=== PATIENT | male | born 1980 | race Caucasian/White ===

== ENCOUNTER 2017-04-24 20:52 | Emergency (ER) | payer SELFPAY ==
[~2017-04-24] VITALS: Ht 175.3 cm; Wt 90.0 kg
[2017-04-24 22:57] LABS: HEMATOCRIT 36.6 % (39.0-50.0); HEMOGLOBIN 11.9 g/dl (14.0-18.0); IMMATURE GRANULOCYTES 0.4 % (0.0-1.0); MEAN CELL VOLUME 97.6 fL CALC (80.0-100.0); MEAN CORPUSCULAR HGB 31.7 pG CALC (26.0-32.0); MEAN CORPUSCULAR HGB CONC 32.5 g/L CALC (32.0-36.0); NEUT# 6.01 thou/uL (1.82-7.42); RED BLOOD COUNT 3.75 mill/uL (4.70-6.10); RED CELL DISTRI WIDTH 13.7 % (11.5-15.5)
[2017-04-24 23:18] LABS: ALBUMIN 3.9 g/dL (3.2-5.0); ALKALINE PHOSPHATASE 111 u/l (38-126); ANION GAP 11 (6-22 (CALC)); BILIRUBIN, TOTAL 0.4 mg/dL (0.0-1.4); BUN 18 mg/dL (9-20); BUN/CREATININE RATIO 29 (12-20 (CALC)); CALCIUM 9.1 mg/dL (8.4-10.2); CARBON DIOXIDE 31 mmol/l (22-30); CHLORIDE 103 mmol/l (95-108); CREATININE 0.6 mg/dL (0.7-1.3); GFR > 60 ML/MIN (>=60 (CALC)); GFR FOR AFR.AMER. > 60 ML/MIN (>=60 (CALC)); GLUCOSE 84 mg/dL (75-110); POTASSIUM 4.2 mmol/l (3.5-5.1); SGOT/AST 20 u/l (17-59); SGPT/ALT 32 u/l (21-72); SODIUM 142 mmol/l (137-146); TOTAL PROTEIN 6.6 g/dL (6.3-8.2)
[2017-04-24 23:30] LABS: MYOGLOBIN 32 ng/mL (0 - 121)
[2017-04-24 23:41] LABS: URINE BILIRUBIN - DIPSTICK NEGATIVE (NEGATIVE); URINE BLOOD DIPSTICK NEGATIVE (NEGATIVE); URINE CLARITY CLEAR; URINE COLOR YELLOW; URINE GLUCOSE - DIPSTICK NEGATIVE (NEGATIVE); URINE KETONE NEGATIVE (NEGATIVE); URINE LEUK ESTERASE NEGATIVE (NEGATIVE); URINE NITRITE - DIPSTICK NEGATIVE (Negative); URINE PH 6.5 (4.5-8.0); URINE PROTEIN - DIPSTICK NEGATIVE (NEG-TRACE); URINE UROBILINOGEN - DIPSTICK 0.2 E.U./dL (0.2)
[2017-04-25] MEDS ORDERED: DOXYCYC MONO100 M2 PO (00:11)
[2017-04-25 01:35] VITALS: BP 102/63
== END 2017-04-25 01:35 | disposition home or self-care (01) | DRG 603 ==
LOC: ED 20:52
PROVIDERS: Emergency Medicine
DX: L03.116 Cellulitis of left lower limb (principal); F17.210 Nicotine dependence, cigarettes, uncomplicated; L03.115 Cellulitis of right lower limb; R22.43 Localized swelling, mass and lump, lower limb, bilateral
CPT/HCPCS: J1956

== ENCOUNTER 2017-07-20 21:29 | Emergency (ER) | payer SELFPAY ==
[~2017-07-20] VITALS: Ht 175.3 cm; Wt 104.8 kg
[~2017-07-20 21:29] MED LIST: DOXYCYC MONO100 M2 PO
[2017-07-20 23:52] VITALS: BP 120/75
== END 2017-07-20 23:45 | disposition home or self-care (01) | DRG 395 ==
LOC: ED 21:29
DX: K40.90 Unilateral inguinal hernia, without obstruction or gangrene, not specified as recurrent (principal); R10.31 Right lower quadrant pain

== ENCOUNTER 2018-03-22 00:13 | Emergency (ER) | payer SELFPAY ==
[~2018-03-22] VITALS: Ht 180.3 cm; Wt 109.0 kg
[2018-03-22 00:51] LABS: HEMATOCRIT 39.7 % (39.0-50.0); HEMOGLOBIN 13.2 g/dl (14.0-18.0); IMMATURE GRANULOCYTES 0.3 % (0.0-5.0); MEAN CELL VOLUME 94.5 fL CALC (80.0-100.0); MEAN CORPUSCULAR HGB 31.4 pG CALC (26.0-32.0); MEAN CORPUSCULAR HGB CONC 33.2 g/L CALC (32.0-36.0); NEUT# 11.05 thou/uL (1.82-7.42); RED BLOOD COUNT 4.2 mill/uL (4.70-6.10); RED CELL DISTRI WIDTH 14.9 % (11.5-15.5)
[2018-03-22 01:00] LABS: ALBUMIN 3.9 g/dL (3.2-5.0); ALKALINE PHOSPHATASE 120 u/l (38-126); ANION GAP 13 (6-22 (CALC)); BILIRUBIN, TOTAL 0.2 mg/dL (0.0-1.4); BUN 30 mg/dL (9-20); BUN/CREATININE RATIO 32 (12-20 (CALC)); CARBON DIOXIDE 28 mmol/l (22-30); CHLORIDE 105 mmol/l (95-108); CREATININE 0.9 mg/dL (0.7-1.3); GFR > 60 ML/MIN (>=60 (CALC)); GFR FOR AFR.AMER. > 60 ML/MIN (>=60 (CALC)); SGOT/AST 29 u/l (17-59); SGPT/ALT 33 u/l (21-72); SODIUM 141 mmol/l (137-146); TOTAL PROTEIN 6.9 g/dL (6.3-8.2)
[2018-03-22 01:11] LABS: MYOGLOBIN 28 ng/mL (0 - 121)
[2018-03-22 04:33] LABS: URINE BILIRUBIN - DIPSTICK NEGATIVE (NEGATIVE); URINE BLOOD DIPSTICK NEGATIVE (NEGATIVE); URINE COLOR YELLOW; URINE GLUCOSE - DIPSTICK NEGATIVE (NEGATIVE); URINE KETONE NEGATIVE (NEGATIVE); URINE LEUK ESTERASE NEGATIVE (NEGATIVE); URINE NITRITE - DIPSTICK NEGATIVE (Negative); URINE PROTEIN - DIPSTICK NEGATIVE (NEG-TRACE); URINE UROBILINOGEN - DIPSTICK 0.2 E.U./dL (0.2)
[2018-03-22 04:35] LABS: URINE CLARITY CLEAR
[2018-03-22 04:37] LABS: BARBITURATES NEGATIVE (NEGATIVE); COCAINE NEGATIVE (NEGATIVE); METHADONE NEGATIVE (NEGATIVE); OXCYCODONE NEGATIVE (NEGATIVE); TETRAHYDROCANNABIONOL POSITIVE (NEGATIVE); TRICYLIC ANTIDEPRESSANTS NEGATIVE (NEGATIVE)
[2018-03-22] MEDS ORDERED: VOLTAREN - GENE75 MG PO (04:43)
[2018-03-22 05:07] VITALS: BP 124/72
== END 2018-03-22 05:07 | disposition home or self-care (01) | DRG 195 ==
LOC: ED 00:13
PROVIDERS: Family Medicine
DX: R09.1 Pleurisy (principal); F17.210 Nicotine dependence, cigarettes, uncomplicated; F19.10 Other psychoactive substance abuse, uncomplicated

== ENCOUNTER 2018-04-11 04:53 | Emergency (ER) | payer SELFPAY ==
[~2018-04-11] VITALS: Ht 180.3 cm; Wt 86.3 kg
[~2018-04-11 04:53] MED LIST changes: +VOLTAREN - GENE75 MG PO
[2018-04-11 06:27] VITALS: BP 117/69
== END 2018-04-11 06:27 | disposition home or self-care (01) | DRG 641 ==
LOC: ED 04:53
DX: E46 Unspecified protein-calorie malnutrition (principal); F17.210 Nicotine dependence, cigarettes, uncomplicated; Z59.0 Homelessness

== ENCOUNTER 2018-05-25 12:38 | Emergency (ER) | payer SELFPAY ==
[~2018-05-25] VITALS: Ht 180.3 cm; Wt 100.0 kg
[2018-05-25 13:43] LABS: HEMATOCRIT 40.5 % (39.0-50.0); IMMATURE GRANULOCYTES 0.2 % (0.0-5.0); MEAN CELL VOLUME 91.6 fL CALC (80.0-100.0); MEAN CORPUSCULAR HGB 31.7 pG CALC (26.0-32.0); MEAN CORPUSCULAR HGB CONC 34.6 g/L CALC (32.0-36.0); NEUT# 9.9 thou/uL (1.82-7.42); RED BLOOD COUNT 4.42 mill/uL (4.70-6.10); RED CELL DISTRI WIDTH 15.2 % (11.5-15.5)
[2018-05-25 13:46] VITALS: BP 113/71
[2018-05-25 13:52] LABS: ALBUMIN 4.1 g/dL (3.2-5.0); ALKALINE PHOSPHATASE 81 u/l (38-126); ANION GAP 12 (6-22 (CALC)); BILIRUBIN, TOTAL 0.5 mg/dL (0.0-1.4); BUN 9 mg/dL (9-20); BUN/CREATININE RATIO 17 (12-20 (CALC)); CARBON DIOXIDE 26 mmol/l (22-30); CHLORIDE 101 mmol/l (95-108); CREATININE 0.5 mg/dL (0.7-1.3); GFR > 60 ML/MIN (>=60 (CALC)); GFR FOR AFR.AMER. > 60 ML/MIN (>=60 (CALC)); POTASSIUM 3.6 mmol/l (3.5-5.1); SGOT/AST 21 u/l (17-59); SODIUM 135 mmol/l (137-146); TOTAL PROTEIN 7.5 g/dL (6.3-8.2)
== END 2018-05-25 13:46 | disposition left against medical advice (07) | DRG 948 ==
LOC: ED 12:38
PROVIDERS: Emergency Medicine
DX: R41.82 Altered mental status, unspecified (principal); Z91.19 Patient's noncompliance with other medical treatment and regimen; F17.200 Nicotine dependence, unspecified, uncomplicated; Y92.414 Local residential or business street as the place of occurrence of the external cause

== ENCOUNTER 2019-01-07 22:57 | Emergency (ER) | payer OTHER ==
[~2019-01-07] VITALS: Ht 180.3 cm; Wt 100.0 kg
[2019-01-07 23:39] LABS: HEMATOCRIT 39.7 % (39.0-50.0); HEMOGLOBIN 13.1 g/dl (14.0-18.0); IMMATURE GRANULOCYTES 0.3 % (0.0-5.0); MEAN CELL VOLUME 93.2 fL CALC (80.0-100.0); MEAN CORPUSCULAR HGB 30.8 pG CALC (26.0-32.0); NEUT# 6.38 thou/uL (1.82-7.42); RED BLOOD COUNT 4.26 mill/uL (4.70-6.10); RED CELL DISTRI WIDTH 13.6 % (11.5-15.5)
[2019-01-07 23:43] LABS: URINE BILIRUBIN - DIPSTICK NEGATIVE (NEGATIVE); URINE BLOOD DIPSTICK NEGATIVE (NEGATIVE); URINE COLOR YELLOW; URINE GLUCOSE - DIPSTICK NEGATIVE (NEGATIVE); URINE KETONE NEGATIVE (NEGATIVE); URINE LEUK ESTERASE NEGATIVE (NEGATIVE); URINE NITRITE - DIPSTICK NEGATIVE (Negative); URINE PROTEIN - DIPSTICK NEGATIVE (NEG-TRACE); URINE UROBILINOGEN - DIPSTICK 0.2 E.U./dL (0.2)
[2019-01-07 23:56] LABS: ALBUMIN 4.2 g/dL (3.2-5.0); ALKALINE PHOSPHATASE 75 u/l (38-126); ANION GAP 12 (6-22 (CALC)); BILIRUBIN, TOTAL 0.5 mg/dL (0.0-1.4); BUN 15 mg/dL (9-20); BUN/CREATININE RATIO 19 (12-20 (CALC)); CARBON DIOXIDE 31 mmol/l (22-30); CHLORIDE 100 mmol/l (95-108); CREATININE 0.8 mg/dL (0.7-1.3); GFR > 60 ML/MIN (>=60 (CALC)); GFR FOR AFR.AMER. > 60 ML/MIN (>=60 (CALC)); POTASSIUM 4.3 mmol/l (3.5-5.1); SGOT/AST 22 u/l (17-59); SODIUM 138 mmol/l (137-146); TOTAL PROTEIN 7.4 g/dL (6.3-8.2)
[2019-01-07 23:57] LABS: BARBITURATES NEGATIVE (NEGATIVE); COCAINE NEGATIVE (NEGATIVE); METHADONE NEGATIVE (NEGATIVE); OXCYCODONE NEGATIVE (NEGATIVE); TETRAHYDROCANNABIONOL NEGATIVE (NEGATIVE); TRICYLIC ANTIDEPRESSANTS NEGATIVE (NEGATIVE)
[2019-01-08] MEDS ORDERED: DILANTIN100 MG PO (01:08)
[2019-01-08 02:08] VITALS: BP 99/58
== END 2019-01-08 02:10 | DRG 101 ==
LOC: ED 22:57
PROVIDERS: Family Medicine
DX: G40.909 Epilepsy, unspecified, not intractable, without status epilepticus (principal); S00.83XA Contusion of other part of head, initial encounter; Y04.0XXA Assault by unarmed brawl or fight, initial encounter; Y92.143 Cell of prison as the place of occurrence of the external cause; F17.200 Nicotine dependence, unspecified, uncomplicated

== ENCOUNTER 2019-04-29 21:22 | Inpatient (IN) | payer OTHER ==
[~2019-04-29] VITALS: Ht 180.3 cm; Wt 95.0 kg
[~2019-04-29 21:22] MED LIST changes: +DILANTIN100 MG PO
[2019-04-29 22:09] LABS: HEMATOCRIT 45.1 % (39.0-50.0); HEMOGLOBIN 14.8 g/dl (14.0-18.0); IMMATURE GRANULOCYTES 0.2 % (0.0-5.0); MEAN CELL VOLUME 92.8 fL CALC (80.0-100.0); MEAN CORPUSCULAR HGB 30.5 pG CALC (26.0-32.0); MEAN CORPUSCULAR HGB CONC 32.8 g/L CALC (32.0-36.0); NEUT# 3.89 thou/uL (1.82-7.42); RED BLOOD COUNT 4.86 mill/uL (4.70-6.10); RED CELL DISTRI WIDTH 13.3 % (11.5-15.5)
[2019-04-29 22:22] LABS: ALBUMIN 5.1 g/dL (3.2-5.0); ALKALINE PHOSPHATASE 77 u/l (38-126); ANION GAP 15 (6-22 (CALC)); BILIRUBIN, TOTAL 0.9 mg/dL (0.0-1.4); BUN 17 mg/dL (9-20); BUN/CREATININE RATIO 22 (12-20 (CALC)); CARBON DIOXIDE 28 mmol/l (22-30); CHLORIDE 99 mmol/l (95-108); CREATININE 0.8 mg/dL (0.7-1.3); ETHYL ALCOHOL 0 mg/dl (0-30); GFR > 60 ML/MIN (>=60 (CALC)); GFR FOR AFR.AMER. > 60 ML/MIN (>=60 (CALC)); POTASSIUM 4.7 mmol/l (3.5-5.1); SGOT/AST 35 u/l (17-59); SODIUM 138 mmol/l (137-146); TOTAL PROTEIN 8.8 g/dL (6.3-8.2)
[2019-04-29 23:09] LABS: URINE BILIRUBIN - DIPSTICK NEGATIVE (NEGATIVE); URINE BLOOD DIPSTICK NEGATIVE (NEGATIVE); URINE COLOR YELLOW; URINE GLUCOSE - DIPSTICK NEGATIVE (NEGATIVE); URINE KETONE NEGATIVE (NEGATIVE); URINE LEUK ESTERASE NEGATIVE (NEGATIVE); URINE NITRITE - DIPSTICK NEGATIVE (Negative); URINE PH 5.5 (4.5-8.0); URINE PROTEIN - DIPSTICK NEGATIVE (NEG-TRACE); URINE UROBILINOGEN - DIPSTICK 0.2 E.U./dL (0.2)
[2019-04-29 23:13] LABS: BARBITURATES NEGATIVE (NEGATIVE); COCAINE NEGATIVE (NEGATIVE); METHADONE NEGATIVE (NEGATIVE); OXCYCODONE NEGATIVE (NEGATIVE); TETRAHYDROCANNABIONOL NEGATIVE (NEGATIVE); TRICYLIC ANTIDEPRESSANTS NEGATIVE (NEGATIVE)
[2019-04-30] VITALS (15 sets, daily range): BP systolic 90–116; BP diastolic 51–74
[2019-04-30] MEDS ORDERED: LEVETIRACETAM500 MG PO (23:48)
== END 2019-04-30 23:54 | DRG 914 ==
LOC: ED 21:22 → ED-I 23:21 → ED 23:38 → ICU 23:39
PROVIDERS: Family Medicine; ADMIT Internal Medicine; ATTEND Internal Medicine
DX: T14.91XA Suicide attempt, initial encounter (principal); X83.8XXA Intentional self-harm by other specified means, initial encounter; Y92.143 Cell of prison as the place of occurrence of the external cause; G40.909 Epilepsy, unspecified, not intractable, without status epilepticus; F31.9 Bipolar disorder, unspecified; Z85.46 Personal history of malignant neoplasm of prostate; Z92.3 Personal history of irradiation; Z91.14 Patient's other noncompliance with medication regimen; T42.0X6A Underdosing of hydantoin derivatives, initial encounter
CPT/HCPCS: J1650; J2060

== ENCOUNTER 2019-12-14 12:10 | Emergency (ER) | payer SELFPAY ==
[~2019-12-14] VITALS: Ht 180.3 cm; Wt 56.0 kg
[~2019-12-14 12:10] MED LIST changes: +LEVETIRACETAM500 MG PO
[2019-12-14 14:00] VITALS: BP 111/68
== END 2019-12-14 14:00 | disposition home or self-care (01) | DRG 556 ==
LOC: ED 12:10
DX: M25.562 Pain in left knee (principal); M25.572 Pain in left ankle and joints of left foot; F17.210 Nicotine dependence, cigarettes, uncomplicated; V18.0XXA Pedal cycle driver injured in noncollision transport accident in nontraffic accident, initial encounter; Y93.55 Activity, bike riding

== ENCOUNTER 2020-06-11 02:51 | Emergency (ER) | payer SELFPAY ==
[~2020-06-11] VITALS: Ht 180.3 cm; Wt 110.0 kg
[2020-06-11 03:27] VITALS: BP 129/82
[2020-06-11 03:27] LABS: URINE BILIRUBIN - DIPSTICK NEGATIVE (NEGATIVE); URINE BLOOD DIPSTICK NEGATIVE (NEGATIVE); URINE COLOR YELLOW; URINE GLUCOSE - DIPSTICK NEGATIVE (NEGATIVE); URINE KETONE NEGATIVE (NEGATIVE); URINE LEUK ESTERASE NEGATIVE (NEGATIVE); URINE NITRITE - DIPSTICK NEGATIVE (Negative); URINE PH 5.5 (4.5-8.0); URINE PROTEIN - DIPSTICK NEGATIVE (NEG-TRACE); URINE SPECIFIC GRAVITY >=1.030; URINE UROBILINOGEN - DIPSTICK 0.2 E.U./dL (0.2)
[2020-06-11 03:29] LABS: HEMATOCRIT 43.1 % (39.0-50.0); IMMATURE GRANULOCYTES 0.2 % (0.0-5.0); MEAN CELL VOLUME 90.2 fL CALC (80.0-100.0); MEAN CORPUSCULAR HGB 29.3 pG CALC (26.0-32.0); MEAN CORPUSCULAR HGB CONC 32.5 g/dL CAL (32.0-36.0); NEUT# 6.94 thou/uL (1.82-7.42); RED BLOOD COUNT 4.78 mill/uL (4.70-6.10); RED CELL DISTRI WIDTH 13.7 % (11.5-15.5)
[2020-06-11 03:39] LABS: ALBUMIN 4.3 g/dL (3.2-5.0); ALKALINE PHOSPHATASE 103 u/l (38-126); ANION GAP 11 (6-22 (CALC)); BUN 17 mg/dL (9-20); BUN/CREATININE RATIO 22 (12-20 (CALC)); CARBON DIOXIDE 26 mmol/l (22-30); CHLORIDE 103 mmol/l (95-108); CREATININE 0.8 mg/dL (0.7-1.3); ETHYL ALCOHOL 0 mg/dl (0-30); GFR > 60 ML/MIN (>=60 (CALC)); GFR FOR AFR.AMER. > 60 ML/MIN (>=60 (CALC)); POTASSIUM 4.5 mmol/l (3.5-5.1); SGOT/AST 29 u/l (17-59); SODIUM 135 mmol/l (137-146); TOTAL PROTEIN 7.4 g/dL (6.3-8.2)
[2020-06-11 03:41] LABS: BILIRUBIN, TOTAL 0.4 mg/dL (0.0-1.4)
== END 2020-06-11 04:09 | disposition left against medical advice (07) | DRG 101 ==
LOC: ED 02:51
PROVIDERS: Family Medicine
DX: G40.909 Epilepsy, unspecified, not intractable, without status epilepticus (principal); I50.9 Heart failure, unspecified; F31.9 Bipolar disorder, unspecified; Z85.46 Personal history of malignant neoplasm of prostate; F17.200 Nicotine dependence, unspecified, uncomplicated; T42.76XA Underdosing of unspecified antiepileptic and sedative-hypnotic drugs, initial encounter; Z91.128 Patient's intentional underdosing of medication regimen for other reason; Z91.19 Patient's noncompliance with other medical treatment and regimen

== ENCOUNTER 2020-06-15 02:47 | Emergency (ER) | payer SELFPAY ==
[~2020-06-15] VITALS: Ht 180.3 cm; Wt 111.0 kg
[2020-06-15 02:47] VITALS: BP 138/88
== END 2020-06-15 03:30 | disposition left against medical advice (07) | DRG 556 ==
LOC: ED 02:47
DX: M25.562 Pain in left knee (principal); I50.9 Heart failure, unspecified; F31.9 Bipolar disorder, unspecified; F17.200 Nicotine dependence, unspecified, uncomplicated; Y00.XXXA Assault by blunt object, initial encounter; Z59.0 Homelessness; Z91.19 Patient's noncompliance with other medical treatment and regimen

== ENCOUNTER 2020-07-15 20:51 | Emergency (ER) | payer SELFPAY ==
[~2020-07-15] VITALS: Ht 180.3 cm; Wt 115.0 kg
[2020-07-15 21:35] VITALS: BP 132/76
== END 2020-07-15 21:35 | disposition left against medical advice (07) | DRG 948 ==
LOC: ED 20:51
DX: R41.82 Altered mental status, unspecified (principal); F15.10 Other stimulant abuse, uncomplicated; I50.9 Heart failure, unspecified; F31.9 Bipolar disorder, unspecified; F17.200 Nicotine dependence, unspecified, uncomplicated; Z91.19 Patient's noncompliance with other medical treatment and regimen; Z85.46 Personal history of malignant neoplasm of prostate; Z59.0 Homelessness

== ENCOUNTER 2020-09-13 00:53 | Emergency (ER) | payer SELFPAY ==
[~2020-09-13] VITALS: Ht 180.3 cm; Wt 96.8 kg
[2020-09-13] MEDS ORDERED: DEPAKOTE250 MG PO (01:28)
[2020-09-13] MEDS ORDERED: KEPPRA250 M1 PO (01:29)
[2020-09-13 01:42] LABS: HEMATOCRIT 36.5 % (39.0-50.0); HEMOGLOBIN 11.7 g/dl (14.0-18.0); IMMATURE GRANULOCYTES 0.2 % (0.0-5.0); MEAN CELL VOLUME 90.8 fL CALC (80.0-100.0); MEAN CORPUSCULAR HGB 29.1 pG CALC (26.0-32.0); MEAN CORPUSCULAR HGB CONC 32.1 g/dL CAL (32.0-36.0); NEUT# 7.82 thou/uL (1.82-7.42); RED BLOOD COUNT 4.02 mill/uL (4.70-6.10); RED CELL DISTRI WIDTH 14.2 % (11.5-15.5)
[2020-09-13 01:47] LABS: URINE BLOOD DIPSTICK NEGATIVE (NEGATIVE); URINE COLOR YELLOW; URINE GLUCOSE - DIPSTICK NEGATIVE (NEGATIVE); URINE KETONE TRACE mg/dL (NEGATIVE); URINE LEUK ESTERASE NEGATIVE (NEGATIVE); URINE PROTEIN - DIPSTICK TRACE mg/dL (NEG-TRACE)
[2020-09-13 01:53] LABS: URINE BILIRUBIN - DIPSTICK SMALL (NEGATIVE)
[2020-09-13 01:54] LABS: URINE NITRITE - DIPSTICK NEGATIVE (Negative)
[2020-09-13 02:10] LABS: ALBUMIN 4.5 g/dL (3.2-5.0); ALKALINE PHOSPHATASE 62 u/l (38-126); ANION GAP 12 (6-22 (CALC)); BUN 20 mg/dL (9-20); BUN/CREATININE RATIO 24 (12-20 (CALC)); CARBON DIOXIDE 29 mmol/l (22-30); CHLORIDE 104 mmol/l (95-108); CREATININE 0.8 mg/dL (0.7-1.3); GFR > 60 ML/MIN (>=60 (CALC)); GFR FOR AFR.AMER. > 60 ML/MIN (>=60 (CALC)); POTASSIUM 3.9 mmol/l (3.5-5.1); SGOT/AST 34 u/l (17-59); SODIUM 142 mmol/l (137-146); TOTAL PROTEIN 7.4 g/dL (6.3-8.2)
[2020-09-13 02:12] LABS: BILIRUBIN, TOTAL 0.9 mg/dL (0.0-1.4)
[2020-09-13 02:29] VITALS: BP 131/76
== END 2020-09-13 02:29 | disposition left against medical advice (07) | DRG 880 ==
LOC: ED 00:53
PROVIDERS: Emergency Medicine
DX: F41.9 Anxiety disorder, unspecified (principal); I50.9 Heart failure, unspecified; F31.9 Bipolar disorder, unspecified; F17.210 Nicotine dependence, cigarettes, uncomplicated; Z59.0 Homelessness; Z91.19 Patient's noncompliance with other medical treatment and regimen

== ENCOUNTER 2020-09-18 00:34 | Emergency (ER) | payer SELFPAY ==
[~2020-09-18] VITALS: Ht 30.5 cm; Wt 73.0 kg
[~2020-09-18 00:34] MED LIST changes: +DEPAKOTE250 MG PO; +KEPPRA250 M1 PO
[2020-09-18 01:03] LABS: HEMOGLOBIN 10.6 g/dl (14.0-18.0); IMMATURE GRANULOCYTES 0.2 % (0.0-5.0); MEAN CELL VOLUME 90.7 fL CALC (80.0-100.0); MEAN CORPUSCULAR HGB 29.1 pG CALC (26.0-32.0); MEAN CORPUSCULAR HGB CONC 32.1 g/dL CAL (32.0-36.0); NEUT# 7.41 thou/uL (1.82-7.42); RED BLOOD COUNT 3.64 mill/uL (4.70-6.10); RED CELL DISTRI WIDTH 14.7 % (11.5-15.5)
[2020-09-18 01:06] LABS: URINE BLOOD DIPSTICK NEGATIVE (NEGATIVE); URINE COLOR YELLOW; URINE GLUCOSE - DIPSTICK NEGATIVE (NEGATIVE); URINE KETONE NEGATIVE (NEGATIVE); URINE LEUK ESTERASE NEGATIVE (NEGATIVE); URINE PH 5.5 (4.5-8.0); URINE PROTEIN - DIPSTICK TRACE mg/dL (NEG-TRACE); URINE SPECIFIC GRAVITY >=1.030; URINE UROBILINOGEN - DIPSTICK 0.2 E.U./dL (0.2)
[2020-09-18 01:13] LABS: URINE BILIRUBIN - DIPSTICK SMALL (NEGATIVE)
[2020-09-18 01:14] LABS: URINE NITRITE - DIPSTICK NEGATIVE (Negative)
[2020-09-18 01:16] LABS: ALBUMIN 4.2 g/dL (3.2-5.0); ALKALINE PHOSPHATASE 63 u/l (38-126); ANION GAP 11 (6-22 (CALC)); BILIRUBIN, TOTAL 0.8 mg/dL (0.0-1.4); BUN 13 mg/dL (9-20); BUN/CREATININE RATIO 17 (12-20 (CALC)); CARBON DIOXIDE 28 mmol/l (22-30); CHLORIDE 104 mmol/l (95-108); CREATININE 0.8 mg/dL (0.7-1.3); ETHYL ALCOHOL 0 mg/dl (0-30); GFR > 60 ML/MIN (>=60 (CALC)); GFR FOR AFR.AMER. > 60 ML/MIN (>=60 (CALC)); POTASSIUM 3.3 mmol/l (3.5-5.1); SGOT/AST 28 u/l (17-59); SODIUM 139 mmol/l (137-146); TOTAL PROTEIN 7.3 g/dL (6.3-8.2)
[2020-09-18 01:28] LABS: MYOGLOBIN 119 ng/mL (0 - 121)
[2020-09-18] MEDS ORDERED: KEPPRA500 M2 PO (02:02)
[2020-09-18 12:23] VITALS: BP 181/76
== END 2020-09-18 12:23 | disposition home or self-care (01) | DRG 101 ==
LOC: ED 00:34
PROVIDERS: Family Medicine
PROC: 0T9B70Z Drainage of Bladder with Drainage Device, Via Natural or Artificial Opening (ICD-10-PCS; principal; 2020-09-18)
DX: R56.9 Unspecified convulsions (principal); F15.10 Other stimulant abuse, uncomplicated; I50.9 Heart failure, unspecified; F31.9 Bipolar disorder, unspecified; F17.200 Nicotine dependence, unspecified, uncomplicated; T42.76XA Underdosing of unspecified antiepileptic and sedative-hypnotic drugs, initial encounter; Z91.128 Patient's intentional underdosing of medication regimen for other reason; Z85.46 Personal history of malignant neoplasm of prostate
CPT/HCPCS: J1953; J2060

== ENCOUNTER 2020-10-20 20:14 | Emergency (ER) | payer SELFPAY ==
[~2020-10-20 20:14] MED LIST changes: +KEPPRA500 M2 PO
== END 2020-10-20 20:28 | disposition left against medical advice (07) | DRG 101 ==
LOC: ED 20:14
DX: G40.909 Epilepsy, unspecified, not intractable, without status epilepticus (principal); L02.414 Cutaneous abscess of left upper limb; I50.9 Heart failure, unspecified; F31.9 Bipolar disorder, unspecified; F17.200 Nicotine dependence, unspecified, uncomplicated; Z91.19 Patient's noncompliance with other medical treatment and regimen

== ENCOUNTER 2021-01-04 02:05 | Emergency (ER) | payer OTHER ==
[~2021-01-04] VITALS: Ht 58.4 cm; Wt 95.0 kg
[2021-01-04 02:05] VITALS: BP 109/68
[2021-01-04] MEDS ORDERED: KEPPRA1000 MG PO (02:21)
[2021-01-04] MEDS ORDERED: [UNRECOGNIZED DRUG - OTHER] (02:22)
[2021-01-04 02:41] LABS: HEMATOCRIT 35.9 % (39.0-50.0); HEMOGLOBIN 11.6 g/dl (14.0-18.0); IMMATURE GRANULOCYTES 0.4 % (0.0-5.0); MEAN CELL VOLUME 91.6 fL CALC (80.0-100.0); MEAN CORPUSCULAR HGB 29.6 pG CALC (26.0-32.0); MEAN CORPUSCULAR HGB CONC 32.3 g/dL CAL (32.0-36.0); NEUT# 5.41 thou/uL (1.82-7.42); RED BLOOD COUNT 3.92 mill/uL (4.70-6.10); RED CELL DISTRI WIDTH 14.1 % (11.5-15.5)
[2021-01-04 02:58] LABS: ALBUMIN 4.3 g/dL (3.2-5.0); ALKALINE PHOSPHATASE 81 u/l (38-126); BUN 24 mg/dL (9-20); BUN/CREATININE RATIO 33 (12-20 (CALC)); CARBON DIOXIDE 25 mmol/l (22-30); CHLORIDE 103 mmol/l (95-108); CREATININE 0.7 mg/dL (0.7-1.3); ETHYL ALCOHOL 0 mg/dl (0-30); GFR > 60 ML/MIN (>=60 (CALC)); GFR FOR AFR.AMER. > 60 ML/MIN (>=60 (CALC)); LIPASE 75 u/l (23-300); MAGNESIUM 1.8 mg/dL (1.6-2.3); SGOT/AST 22 u/l (17-59); SODIUM 137 mmol/l (137-146); TOTAL PROTEIN 7.4 g/dL (6.3-8.2)
[2021-01-04 02:59] LABS: ANION GAP 13 (6-22 (CALC)); BILIRUBIN, TOTAL 0.2 mg/dL (0.0-1.4); POTASSIUM 4.3 mmol/l (3.5-5.1)
[2021-01-04 03:01] LABS: ACT PARTIAL THROMBO TIME 26.1 SECONDS (20.0-32.5); PROTHROMBIN TIME 10.4 SECONDS (9.0-12.5)
[2021-01-04 03:47] LABS: URINE BILIRUBIN - DIPSTICK NEGATIVE (NEGATIVE); URINE BLOOD DIPSTICK NEGATIVE (NEGATIVE); URINE COLOR YELLOW; URINE GLUCOSE - DIPSTICK NEGATIVE (NEGATIVE); URINE KETONE NEGATIVE (NEGATIVE); URINE LEUK ESTERASE NEGATIVE (NEGATIVE); URINE PH 5.5 (4.5-8.0); URINE PROTEIN - DIPSTICK NEGATIVE (NEG-TRACE); URINE SPECIFIC GRAVITY 1.025; URINE UROBILINOGEN - DIPSTICK 0.2 E.U./dL (0.2)
[2021-01-04 03:51] LABS: URINE NITRITE - DIPSTICK NEGATIVE (Negative)
== END 2021-01-04 04:30 | DRG 101 ==
LOC: ED 02:05
DX: G40.409 Other generalized epilepsy and epileptic syndromes, not intractable, without status epilepticus (principal); T42.6X6A Underdosing of other antiepileptic and sedative-hypnotic drugs, initial encounter; Z91.128 Patient's intentional underdosing of medication regimen for other reason; I50.9 Heart failure, unspecified; F31.9 Bipolar disorder, unspecified; F17.200 Nicotine dependence, unspecified, uncomplicated; Z20.822 Contact with and (suspected) exposure to COVID-19
CPT/HCPCS: J1953

== ENCOUNTER 2021-01-16 01:33 | Emergency (ER) | payer SELFPAY ==
[~2021-01-16] VITALS: Ht 175.3 cm; Wt 93.0 kg
[~2021-01-16 01:33] MED LIST changes: +KEPPRA1000 MG PO; +[UNRECOGNIZED DRUG - OTHER]
[2021-01-16 02:43] VITALS: BP 118/65
== END 2021-01-16 02:43 | disposition left against medical advice (07) | DRG 894 ==
LOC: ED 01:33
DX: F15.10 Other stimulant abuse, uncomplicated (principal); F31.9 Bipolar disorder, unspecified; I50.9 Heart failure, unspecified; Z91.19 Patient's noncompliance with other medical treatment and regimen

== ENCOUNTER 2021-01-29 07:21 | Observation (INO) | payer SELFPAY ==
[2021-01-29] MEDS ORDERED: DOXEPIN HYDROCH PO (07:39)
[2021-01-29] MEDS ORDERED: SINEQUAN50 MG PO (07:39)
[2021-01-29] MEDS ORDERED: KEPPRA500 M2 PO (07:40)
[2021-01-29 07:48] LABS: GFR > 60 ML/MIN (>=60 (CALC)); GFR FOR AFR.AMER. > 60 ML/MIN (>=60 (CALC))
[2021-01-29 07:53] LABS: HEMATOCRIT 35.1 % (39.0-50.0); HEMOGLOBIN 11.5 g/dl (14.0-18.0); IMMATURE GRANULOCYTES 0.1 % (0.0-5.0); MEAN CELL VOLUME 92.4 fL CALC (80.0-100.0); MEAN CORPUSCULAR HGB 30.3 pG CALC (26.0-32.0); MEAN CORPUSCULAR HGB CONC 32.8 g/dL CAL (32.0-36.0); NEUT# 8.94 thou/uL (1.82-7.42); RED BLOOD COUNT 3.8 mill/uL (4.70-6.10); RED CELL DISTRI WIDTH 15.2 % (11.5-15.5)
[2021-01-29 08:03] LABS: ALBUMIN 4.2 g/dL (3.2-5.0); ALKALINE PHOSPHATASE 73 u/l (38-126); ANION GAP 13 (6-22 (CALC)); BUN 17 mg/dL (9-20); BUN/CREATININE RATIO 23 (12-20 (CALC)); CARBON DIOXIDE 27 mmol/l (22-30); CHLORIDE 100 mmol/l (95-108); CREATININE 0.8 mg/dL (0.7-1.3); ETHYL ALCOHOL 0 mg/dl (0-30); GFR > 60 ML/MIN (>=60 (CALC)); GFR FOR AFR.AMER. > 60 ML/MIN (>=60 (CALC)); LIPASE 34 u/l (23-300); MAGNESIUM 2.1 mg/dL (1.6-2.3); POTASSIUM 4.3 mmol/l (3.5-5.1); SGOT/AST 23 u/l (17-59); SODIUM 136 mmol/l (137-146); TOTAL PROTEIN 7.7 g/dL (6.3-8.2)
[2021-01-29 08:06] LABS: BILIRUBIN, TOTAL 0.6 mg/dL (0.0-1.4)
[2021-01-29 08:17] LABS: D-DIMER 1.03 mg/L (0.19-0.60)
[2021-01-29 08:18] LABS: PROTHROMBIN TIME 10.9 SECONDS (9.0-12.5)
[2021-01-29 12:52] LABS: URINE BILIRUBIN - DIPSTICK NEGATIVE (NEGATIVE); URINE BLOOD DIPSTICK NEGATIVE (NEGATIVE); URINE COLOR YELLOW; URINE GLUCOSE - DIPSTICK NEGATIVE (NEGATIVE); URINE KETONE NEGATIVE (NEGATIVE); URINE LEUK ESTERASE NEGATIVE (NEGATIVE); URINE PROTEIN - DIPSTICK NEGATIVE (NEG-TRACE); URINE SPECIFIC GRAVITY 1.025
[2021-01-29 12:53] VITALS: BP 118/78
[2021-01-29 12:54] LABS: URINE NITRITE - DIPSTICK NEGATIVE (Negative)
[2021-01-29 14:38] VITALS: BP 107/69
[2021-01-29 19:00] VITALS: BP 111/68
== END 2021-01-29 20:15 | disposition left against medical advice (07) | DRG 603 ==
LOC: ED 07:21 → ED-I 08:09 → ED 08:09 → ED-I 09:20 → ED 09:32 → MS2 09:32
PROVIDERS: Family Medicine; ADMIT Hospitalist; ATTEND Hospitalist
PROC: 0T9B70Z Drainage of Bladder with Drainage Device, Via Natural or Artificial Opening (ICD-10-PCS; principal; 2021-01-29)
DX: L03.317 Cellulitis of buttock (principal); F15.129 Other stimulant abuse with intoxication, unspecified; F12.129 Cannabis abuse with intoxication, unspecified; F16.129 Hallucinogen abuse with intoxication, unspecified; I50.9 Heart failure, unspecified; F41.9 Anxiety disorder, unspecified; F31.9 Bipolar disorder, unspecified; S40.211A Abrasion of right shoulder, initial encounter; S80.812A Abrasion, left lower leg, initial encounter; S80.811A Abrasion, right lower leg, initial encounter; F17.200 Nicotine dependence, unspecified, uncomplicated; V13.4XXA Pedal cycle driver injured in collision with car, pick-up truck or van in traffic accident, initial encounter; Z91.5 Personal history of self-harm; Z88.0 Allergy status to penicillin; Z20.822 Contact with and (suspected) exposure to COVID-19
CPT/HCPCS: G0378; J2060; Q9967

== ENCOUNTER 2021-06-13 14:23 | Emergency (ER) | payer OTHER ==
[~2021-06-13] VITALS: Ht 175.3 cm; Wt 75.0 kg
[~2021-06-13 14:23] MED LIST changes: +DOXEPIN HYDROCH PO; +SINEQUAN50 MG PO
[2021-06-13 15:05] LABS: HEMATOCRIT 36.8 % (39.0-50.0); HEMOGLOBIN 12.3 g/dl (14.0-18.0); IMMATURE GRANULOCYTES 0.1 % (0.0-5.0); MEAN CELL VOLUME 92.7 fL CALC (80.0-100.0); MEAN CORPUSCULAR HGB CONC 33.4 g/dL CAL (32.0-36.0); NEUT# 9.97 thou/uL (1.82-7.42); RED BLOOD COUNT 3.97 mill/uL (4.70-6.10); RED CELL DISTRI WIDTH 15.2 % (11.5-15.5)
[2021-06-13 15:19] LABS: ALBUMIN 3.9 g/dL (3.2-5.0); ALKALINE PHOSPHATASE 84 u/l (38-126); ANION GAP 10 (6-22 (CALC)); BILIRUBIN, TOTAL 0.7 mg/dL (0.0-1.4); BUN 15 mg/dL (9-20); BUN/CREATININE RATIO 16 (12-20 (CALC)); CARBON DIOXIDE 27 mmol/l (22-30); CHLORIDE 106 mmol/l (95-108); CREATININE 0.9 mg/dL (0.7-1.3); GFR > 60 ML/MIN (>=60 (CALC)); GFR FOR AFR.AMER. > 60 ML/MIN (>=60 (CALC)); POTASSIUM 3.7 mmol/l (3.5-5.1); SGOT/AST 25 u/l (17-59); SODIUM 140 mmol/l (137-146); TOTAL PROTEIN 7.3 g/dL (6.3-8.2)
[2021-06-13 17:16] LABS: URINE BILIRUBIN - DIPSTICK NEGATIVE (NEGATIVE); URINE BLOOD DIPSTICK NEGATIVE (NEGATIVE); URINE COLOR YELLOW; URINE GLUCOSE - DIPSTICK NEGATIVE (NEGATIVE); URINE KETONE NEGATIVE (NEGATIVE); URINE LEUK ESTERASE NEGATIVE (NEGATIVE); URINE PROTEIN - DIPSTICK NEGATIVE (NEG-TRACE); URINE SPECIFIC GRAVITY >=1.030; URINE UROBILINOGEN - DIPSTICK 0.2 E.U./dL (0.2)
[2021-06-13 17:21] LABS: URINE NITRITE - DIPSTICK NEGATIVE (Negative)
--- NOTE | 2021-06-13 17:42 | NUR ---
PT INTUBATED AT 1736 WITH NUMBER 8 ETT AT 22CM AT THE LIP. INTUBATED IN ONE ATTEMPT. PT PLACED ON VENT AND AWAITING TRANSFER. VS WITHIN NORMAL RANGE. SATS 99%
[2021-06-13 20:20] VITALS: BP 103/66
== END 2021-06-13 20:25 | disposition short-term general hospital (02) | DRG 101 ==
LOC: ED 14:23
PROVIDERS: Family Medicine
PROC: 0BH17EZ Insertion of Endotracheal Airway into Trachea, Via Natural or Artificial Opening (ICD-10-PCS; principal; 2021-06-13)
PROC: 02HV33Z Insertion of Infusion Device into Superior Vena Cava, Percutaneous Approach (ICD-10-PCS; 2021-06-13)
PROC: 0T9B70Z Drainage of Bladder with Drainage Device, Via Natural or Artificial Opening (ICD-10-PCS; 2021-06-13)
DX: R56.9 Unspecified convulsions (principal); F15.10 Other stimulant abuse, uncomplicated; F12.10 Cannabis abuse, uncomplicated; I50.9 Heart failure, unspecified; F31.9 Bipolar disorder, unspecified; F17.200 Nicotine dependence, unspecified, uncomplicated
CPT/HCPCS: J1953; J2060

== ENCOUNTER 2021-08-13 19:28 | Emergency (ER) | payer SELFPAY ==
[~2021-08-13] VITALS: Ht 175.3 cm; Wt 88.7 kg
[2021-08-13 20:01] LABS: HEMATOCRIT 39.2 % (39.0-50.0); HEMOGLOBIN 12.7 g/dl (14.0-18.0); IMMATURE GRANULOCYTES 0.1 % (0.0-5.0); MEAN CELL VOLUME 94.2 fL CALC (80.0-100.0); MEAN CORPUSCULAR HGB 30.5 pG CALC (26.0-32.0); MEAN CORPUSCULAR HGB CONC 32.4 g/dL CAL (32.0-36.0); NEUT# 11.12 thou/uL (1.82-7.42); RED BLOOD COUNT 4.16 mill/uL (4.70-6.10); RED CELL DISTRI WIDTH 14.9 % (11.5-15.5)
[2021-08-13 20:10] LABS: ALBUMIN 3.7 g/dL (3.2-5.0); ALKALINE PHOSPHATASE 113 u/l (38-126); ANION GAP 9 (6-22 (CALC)); BUN 26 mg/dL (9-20); BUN/CREATININE RATIO 32 (12-20 (CALC)); CARBON DIOXIDE 28 mmol/l (22-30); CHLORIDE 104 mmol/l (95-108); CREATININE 0.8 mg/dL (0.7-1.3); GFR > 60 ML/MIN (>=60 (CALC)); GFR FOR AFR.AMER. > 60 ML/MIN (>=60 (CALC)); POTASSIUM 4.4 mmol/l (3.5-5.1); SGOT/AST 24 u/l (17-59); SODIUM 136 mmol/l (137-146); TOTAL PROTEIN 7.2 g/dL (6.3-8.2)
[2021-08-13 20:16] LABS: BILIRUBIN, TOTAL 0.2 mg/dL (0.0-1.4)
[2021-08-13 20:22] LABS: MYOGLOBIN 40 ng/mL (0 - 121)
[2021-08-13] MEDS ORDERED: BACTRIM DS1 TAB PO (21:29)
[2021-08-13] MEDS ORDERED: PERCOCET 10/31 COMBO PO (21:29)
[2021-08-13] MEDS ORDERED: CLEOCIN300 MG PO (21:30)
[2021-08-13] MEDS ORDERED: KEPPRA500 M2 PO (23:44)
[2021-08-14 03:45] LABS: URINE BILIRUBIN - DIPSTICK NEGATIVE (NEGATIVE); URINE BLOOD DIPSTICK NEGATIVE (NEGATIVE); URINE COLOR YELLOW; URINE GLUCOSE - DIPSTICK NEGATIVE (NEGATIVE); URINE KETONE NEGATIVE (NEGATIVE); URINE LEUK ESTERASE NEGATIVE (NEGATIVE); URINE PROTEIN - DIPSTICK NEGATIVE (NEG-TRACE); URINE UROBILINOGEN - DIPSTICK 0.2 E.U./dL (0.2)
[2021-08-14 03:51] LABS: URINE NITRITE - DIPSTICK NEGATIVE (Negative)
[2021-08-14 09:18] VITALS: BP 111/77
== END 2021-08-14 09:18 | disposition home or self-care (01) | DRG 603 ==
LOC: ED 19:28
PROVIDERS: Emergency Medicine
PROC: 0H9DXZZ Drainage of Right Lower Arm Skin, External Approach (ICD-10-PCS; principal; 2021-08-13)
DX: L02.413 Cutaneous abscess of right upper limb (principal); R56.9 Unspecified convulsions; I50.9 Heart failure, unspecified; F31.9 Bipolar disorder, unspecified; F17.200 Nicotine dependence, unspecified, uncomplicated; T42.76XA Underdosing of unspecified antiepileptic and sedative-hypnotic drugs, initial encounter; Z91.128 Patient's intentional underdosing of medication regimen for other reason; Z85.46 Personal history of malignant neoplasm of prostate

== ENCOUNTER 2021-08-14 20:08 | Emergency (ER) | payer SELFPAY ==
[~2021-08-14 20:08] MED LIST changes: +BACTRIM DS1 TAB PO; +CLEOCIN300 MG PO; +PERCOCET 10/31 COMBO PO
== END 2021-08-14 21:51 | disposition left against medical advice (07) | DRG 951 ==
LOC: ED 20:08 → LWOBS 21:51
DX: Z53.21 Procedure and treatment not carried out due to patient leaving prior to being seen by health care provider (principal)

== ENCOUNTER 2021-08-15 12:27 | Emergency (ER) | payer SELFPAY | END 2021-08-15 14:00 | disposition left against medical advice (07) | DRG 951 | LOC: ED 12:27 → LWOBS 13:27 | DX: Z53.21 Procedure and treatment not carried out due to patient leaving prior to being seen by health care provider (principal) ==

== ENCOUNTER 2021-10-31 21:24 | Emergency (ER) | payer OTHER ==
[~2021-10-31] VITALS: Ht 175.3 cm; Wt 95.0 kg
[2021-10-31] VITALS (8 sets, daily range): BP systolic 82–108; BP diastolic 49–66
[2021-10-31 21:54] LABS: MEAN CELL VOLUME 91.2 fL CALC (80.0-100.0); MEAN CORPUSCULAR HGB 29.5 pG CALC (26.0-32.0); MEAN CORPUSCULAR HGB CONC 32.4 g/dL CAL (32.0-36.0); NEUT# 4.44 thou/uL (1.82-7.42); RED BLOOD COUNT 5.01 mill/uL (4.70-6.10)
[2021-10-31 21:55] LABS: HEMATOCRIT 45.7 % (39.0-50.0); HEMOGLOBIN 14.8 g/dl (14.0-18.0)
[2021-10-31 22:02] LABS: ALBUMIN 4.4 g/dL (3.2-5.0); ALKALINE PHOSPHATASE 80 u/l (38-126); ANION GAP 12 (6-22 (CALC)); BILIRUBIN, TOTAL 0.4 mg/dL (0.0-1.4); BUN 17 mg/dL (9-20); BUN/CREATININE RATIO 20 (12-20 (CALC)); CARBON DIOXIDE 31 mmol/l (22-30); CHLORIDE 99 mmol/l (95-108); CPK 34 u/l (52-200); CREATININE 0.8 mg/dL (0.7-1.3); GFR > 60 ML/MIN (>=60 (CALC)); GFR FOR AFR.AMER. > 60 ML/MIN (>=60 (CALC)); POTASSIUM 4.1 mmol/l (3.5-5.1); SGOT/AST 21 u/l (17-59); SODIUM 137 mmol/l (137-146); TOTAL PROTEIN 7.6 g/dL (6.3-8.2)
[2021-11-01 00:01] VITALS: BP 102/65
[2021-11-01 00:24] VITALS: BP 102/65
== END 2021-11-01 00:34 | DRG 93 ==
LOC: ED 21:24
PROVIDERS: Internal Medicine
DX: R25.8 Other abnormal involuntary movements (principal); M54.2 Cervicalgia; I50.9 Heart failure, unspecified; F31.9 Bipolar disorder, unspecified; F19.10 Other psychoactive substance abuse, uncomplicated; W19.XXXA Unspecified fall, initial encounter; Z85.46 Personal history of malignant neoplasm of prostate
CPT/HCPCS: J1953

== ENCOUNTER 2022-01-10 21:19 | Emergency (ER) | payer OTHER ==
[2022-01-10] VITALS (12 sets, daily range): BP systolic 74–104; BP diastolic 39–79
[~2022-01-10] VITALS: Ht 175.3 cm; Wt 100.0 kg
[2022-01-10 21:46] LABS: MEAN CELL VOLUME 94.3 fL CALC (80.0-100.0); MEAN CORPUSCULAR HGB 30.2 pG CALC (26.0-32.0); MEAN CORPUSCULAR HGB CONC 32.1 g/dL CAL (32.0-36.0); NEUT# 2.98 thou/uL (1.82-7.42); RED BLOOD COUNT 3.34 mill/uL (4.70-6.10); RED CELL DISTRI WIDTH 14.6 % (11.5-15.5)
[2022-01-10 21:47] LABS: HEMATOCRIT 31.5 % (39.0-50.0); HEMOGLOBIN 10.1 g/dl (14.0-18.0)
[2022-01-10 22:04] LABS: ALBUMIN 4.1 g/dL (3.2-5.0); ALKALINE PHOSPHATASE 59 u/l (38-126); ANION GAP 11 (6-22 (CALC)); BILIRUBIN, TOTAL 0.3 mg/dL (0.0-1.4); BUN 12 mg/dL (9-20); BUN/CREATININE RATIO 13 (12-20 (CALC)); CARBON DIOXIDE 29 mmol/l (22-30); CHLORIDE 101 mmol/l (95-108); CREATININE 0.9 mg/dL (0.7-1.3); GFR FOR AFR.AMER. > 60 ML/MIN (>=60 (CALC)); GFR OTHER RACES > 60 ML/MIN (>=60 (CALC)); POTASSIUM 4.3 mmol/l (3.5-5.1); SGOT/AST 17 u/l (17-59); SODIUM 137 mmol/l (137-146); TOTAL PROTEIN 6.9 g/dL (6.3-8.2)
[2022-01-10 22:15] LABS: MYOGLOBIN 66 ng/mL (0 - 121)
[2022-01-10 23:03] LABS: URINE BILIRUBIN - DIPSTICK NEGATIVE (NEGATIVE); URINE BLOOD DIPSTICK NEGATIVE (NEGATIVE); URINE COLOR YELLOW; URINE GLUCOSE - DIPSTICK NEGATIVE (NEGATIVE); URINE KETONE NEGATIVE (NEGATIVE); URINE LEUK ESTERASE NEGATIVE (NEGATIVE); URINE PROTEIN - DIPSTICK NEGATIVE (NEG-TRACE); URINE SPECIFIC GRAVITY <=1.005; URINE UROBILINOGEN - DIPSTICK 0.2 E.U./dL (0.2)
[2022-01-10 23:07] LABS: URINE NITRITE - DIPSTICK NEGATIVE (Negative)
[2022-01-11 00:15] VITALS: BP 71/36
[2022-01-11 00:30] VITALS: BP 92/62
[2022-01-11 00:32] VITALS: BP 95/63
[2022-01-11 00:40] VITALS: BP 95/63
== END 2022-01-11 00:20 | DRG 948 ==
LOC: ED 21:19
PROVIDERS: Emergency Medicine
DX: R41.82 Altered mental status, unspecified (principal); G40.909 Epilepsy, unspecified, not intractable, without status epilepticus; I50.9 Heart failure, unspecified; F31.9 Bipolar disorder, unspecified; Z85.46 Personal history of malignant neoplasm of prostate
CPT/HCPCS: J1953

== ENCOUNTER 2023-07-26 18:53 | Emergency (ER) | payer OTHER ==
[~2023-07-26] VITALS: Ht 175.3 cm; Wt 108.0 kg
[2023-07-26 19:42] LABS: BASO% 1.3 % (0-3); EOS% 6.7 % (0-8); HEMATOCRIT 36.4 % (39.0-50.0); IMMATURE GRANULOCYTES 0.2 % (0.0-5.0); LYMPH% 14.3 % (15-41); MEAN CELL VOLUME 90.3 fL CALC (80.0-100.0); MEAN CORPUSCULAR HGB CONC 33.2 g/dL CAL (32.0-36.0); MONO% 9.1 % (2-13); NEUT# 7.34 thou/uL (1.82-7.42); NEUT% 68.4 % (42-76); RED BLOOD COUNT 4.03 mill/uL (4.70-6.10); RED CELL DISTRI WIDTH 13.7 % (11.5-15.5)
[2023-07-26 19:43] LABS: HEMOGLOBIN 12.1 g/dl (14.0-18.0)
[2023-07-26 19:54] LABS: ANION GAP 8 (6-22 (CALC)); BUN 16 mg/dL (9-20); BUN/CREATININE RATIO 19 (12-20 (CALC)); CARBON DIOXIDE 26 mmol/l (22-30); CHLORIDE 107 mmol/l (95-108); CREATININE 0.8 mg/dL (0.7-1.3); ETHYL ALCOHOL 0 mg/dl (0-30); GFR FOR AFR.AMER. > 60 ML/MIN (>=60 (CALC)); GFR OTHER RACES > 60 ML/MIN (>=60 (CALC)); POTASSIUM 3.6 mmol/l (3.5-5.1); SODIUM 138 mmol/l (137-146); TOTAL PROTEIN 6.9 g/dL (6.3-8.2)
[2023-07-26 19:55] LABS: ALKALINE PHOSPHATASE 109 u/l (38-126); BILIRUBIN, TOTAL 0.6 mg/dL (0.2-1.3); SGOT/AST 35 u/l (17-59)
[2023-07-26] MEDS ORDERED: KEPPRA500 M2 PO (22:04)
[2023-07-26 22:43] VITALS: BP 101/66
== END 2023-07-26 22:43 | DRG 101 ==
LOC: ED 18:53
PROVIDERS: Family Medicine
DX: R56.9 Unspecified convulsions (principal); I50.9 Heart failure, unspecified
CPT/HCPCS: J1953

== ENCOUNTER 2023-08-21 17:10 | Emergency (ER) | payer SELFPAY ==
[~2023-08-21] VITALS: Ht 175.3 cm; Wt 105.6 kg
[2023-08-21 17:22] VITALS: BP 121/72
[2023-08-21 17:34] VITALS: BP 109/61
[2023-08-21] MEDS ORDERED: KETOROLAC TROMETHAMINE 30 MG/ML SDV IV ONE (17:45)
[2023-08-21] MEDS ORDERED: SODIUM CHLORIDE 0.9% 1,000 ML IV ONE (17:45)
[2023-08-21 17:55] LABS: BASO% 1.1 % (0-3); EOS% 1.8 % (0-8); HEMATOCRIT 37.8 % (39.0-50.0); HEMOGLOBIN 12.7 g/dl (14.0-18.0); IMMATURE GRANULOCYTES 0.1 % (0.0-5.0); LYMPH% 20.8 % (15-41); MEAN CELL VOLUME 89.6 fL CALC (80.0-100.0); MEAN CORPUSCULAR HGB 30.1 pG CALC (26.0-32.0); MEAN CORPUSCULAR HGB CONC 33.6 g/dL CAL (32.0-36.0); MONO% 8.4 % (2-13); NEUT# 6.31 thou/uL (1.82-7.42); NEUT% 67.8 % (42-76); RED BLOOD COUNT 4.22 mill/uL (4.70-6.10); RED CELL DISTRI WIDTH 13.4 % (11.5-15.5)
[2023-08-21 18:02] VITALS: BP 115/72
[2023-08-21 18:13] LABS: ALBUMIN 4.7 g/dL (3.2-5.0); ALKALINE PHOSPHATASE 99 u/l (38-126); BILIRUBIN, TOTAL 0.6 mg/dL (0.2-1.3); BUN 13 mg/dL (9-20); BUN/CREATININE RATIO 14 (12-20 (CALC)); CARBON DIOXIDE 24 mmol/l (22-30); CHLORIDE 105 mmol/l (95-108); CREATININE 0.9 mg/dL (0.7-1.3); GFR FOR AFR.AMER. > 60 ML/MIN (>=60 (CALC)); GFR OTHER RACES > 60 ML/MIN (>=60 (CALC)); SGOT/AST 39 u/l (17-59); SODIUM 139 mmol/l (137-146); TOTAL PROTEIN 7.4 g/dL (6.3-8.2)
[2023-08-21 18:21] LABS: ANION GAP 14 (6-22 (CALC)); POTASSIUM 4.4 mmol/l (3.5-5.1)
[2023-08-21 19:09] VITALS: BP 106/79
[2023-08-21 19:30] VITALS: BP 121/83
[2023-08-21 19:48] VITALS: BP 121/83
== END 2023-08-21 19:48 | disposition left against medical advice (07) | DRG 392 ==
LOC: ED 17:10
PROVIDERS: Nurse Practitioner
DX: R10.31 Right lower quadrant pain (principal); I50.9 Heart failure, unspecified; F31.9 Bipolar disorder, unspecified; F19.10 Other psychoactive substance abuse, uncomplicated; Z85.46 Personal history of malignant neoplasm of prostate; Z53.29 Procedure and treatment not carried out because of patient's decision for other reasons; Z20.822 Contact with and (suspected) exposure to COVID-19
CPT/HCPCS: Q9967